=== PATIENT | female | born 1945 | race Caucasian/White ===

== ENCOUNTER 2022-10-14 05:10 | Day surgery (SDC) | payer OTHER ==
[~2022-10-14] VITALS: Ht 157.5 cm; Wt 83.0 kg
[~2022-10-14 05:10] MED LIST: ARICEPT10 MG PO; CARDIZEM120 MG PO; COZAAR100 MG PO; DITROPAN XL5 MG PO; DURICEF 500 MG CAPSULE PO; FOLIC ACID0.8 M1 PO; FUSION PLUS CA1 EACH PO; HUMULIN N100 UNIT/2 IM; LIPITOR20 MG PO; NAMENDA XR14 MG PO; OXYC1TAB9 PO; XARELTO 10MG PO
== END 2022-10-14 11:40 | disposition home or self-care (01) ==
LOC: CIR.AMB 05:10
PROVIDERS: ATTEND Surgery
DX: C18.9 Malignant neoplasm of colon, unspecified (principal); Z20.822 Contact with and (suspected) exposure to COVID-19; E11.9 Type 2 diabetes mellitus without complications; E78.5 Hyperlipidemia, unspecified; I10 Essential (primary) hypertension